=== PATIENT | male | born 1985 | race Caucasian/White ===

== ENCOUNTER 2021-05-26 14:13 | Outpatient (REF) | payer SELFPAY ==
[2021-05-26 16:00] LABS: Binax Internal Control QC Valid; Binax Now Covid-19 Ag Negative (Negative)
== END 2021-05-26 14:14 | disposition home or self-care (01) ==
LOC: HO.LAB 14:13
PROVIDERS: Visit Provider Internal Medicine
DX: Z20.822 Contact with and (suspected) exposure to COVID-19 (principal)
CPT/HCPCS: 36415; C9803

== ENCOUNTER 2023-04-29 20:49 | Emergency (ER) | payer OTHER, SELFPAY ==
[2023-04-29 21:02] VITALS: BP 154/85; PULSE 70; RESP 18; TEMP 36.8; O2SAT 97; BMI 46.0
[2023-04-29 21:46] LABS: MANUAL DIFF FLAG NO
[2023-04-29 21:50] LABS: Basophils Absolute Auto 0.1 X10*3/uL (0.0-0.2); Basophils Percent Auto 0.5 % (0-2); Eosinophils Absolute Auto 0.2 X10*3/uL (0.0-0.4); Eosinophils Percent Auto 1.6 % (0-4); Hematocrit 40.3 % (42.0-52.0); Hemoglobin 14.3 g/dl (14.0-18.0); Imm Gran Abs Auto 0.04 X10*3/uL (0.00-0.03); Imm Gran Pct Auto 0.4 % (0.0-0.4); Lymphocytes Absolute Auto 1.8 X10*3/uL (1.2-4.9); Lymphocytes Percent Auto 18.5 % (20-40); Mean Corpuscular HGB Conc 35.5 g/dl (31.0-36.0); Mean Corpuscular Hemoglobin 30.6 pg (27.0-33.0); Mean Corpuscular Volume 86.1 fL (80.0-98.0); Mean Platelet Volume 9.9 fL (9.4-12.4); Monocytes Absolute Auto 0.8 X10*3/uL (0.1-1.2); Neutrophils Absolute Auto 6.8 x10*3/uL (2.0-8.3); Platelet Count 191 X10*3/uL (160-400); Red Blood Count 4.68 X10*6/uL (4.60-5.80); Red Cell Distribution Width 12.8 % (11.0-16.0); White Blood Count 9.5 X10*3/uL (4.8-10.8)
[2023-04-29 22:56] LABS: Alanine Aminotransferase 55 U/L (0-40); Albumin Level 4.3 g/dL (3.5-5.0); Alkaline Phosphatase 58 U/L (39-117); Anion Gap 16 (12-20); Aspartate Amino Transferase 25 U/L (5-37); Bilirubin Total 0.7 mg/dL (0.0-1.0); Blood Urea Nitrogen 8 mg/dL (9-16); Calcium 9.6 mg/dL (8.4-10.2); Carbon Dioxide 25 mmol/L (22-29); Chloride 102 mmol/L (96-108); Creatinine Clr Calc Pharmacy 229.1; Estimated Glomerular Filt Rate > 60; Glucose Random 133 mg/dL (60-115); Lipase 12 U/L (8-78); Potassium 3.5 mmol/L (3.3-5.1); Sodium 139 mmol/L (135-145); Total Protein 7.5 g/dL (6.5-8.0)
[2023-04-29 23:12] VITALS: BP 133/67; PULSE 56; RESP 16; TEMP 36.7; O2SAT 97
--- NOTE | 2023-04-29 23:17 | ED.ABDPAIN ---
HPI - Abdominal Pain General Chief Complaint: Abdominal Pain Stated Complaint: uppper abd pain,cough Time Seen by Provider: 04/29/23 23:07 Source: patient Mode of arrival: ambulatory History of Present Illness HPI narrative: 37-year-old male with a history of GERD comes in with significant epigastric burning pain since this morning and although the triage note states that he denied eating any fatty foods patient states that he had to 10% beers yesterday with various pizzas. He denies any fever, chills, nausea, vomiting. Related Data Allergies Allergy/AdvReac Type Severity Reaction Status Date / Time Penicillins [PENICILLINS] Allergy Severe HIVES Verified 04/29/23 21:08 penicillin V Allergy Unknown hives Verified 04/29/23 21:08 Review of Systems Review of Systems Pertinent positives and negatives as stated in HPI PMFSH Past Medical History Source: nursing notes reviewed Social History Social History Advance Directives: No Advance Directives Information Provided: No Physical Exam ED Vital Signs: Vital Signs - 24 hr 04/29/23 21:02 04/29/23 23:12 Temperature 98.2 F 98.0 F Pulse Rate 70 56 Respiratory Rate 18 16 Blood Pressure 154/85 H 133/67 Pulse Oximetry 97 97 Oxygen Delivery Method Room Air Room Air BMI result Body Mass Index 46.0 VITAL SIGNS: Reviewed. GENERAL: Well developed, well nourished, in no acute distress. HEAD: Normocephalic/atraumatic EYES: PERRLA, EOMI EARS: Ext canals without abnormality LUNGS: Normal breath sounds. No adventitious sounds or accessory muscle use. SpO2<97> CARDIOVASCULAR: Regular rate and rhythm without noted murmurs ABDOMEN: Soft, non-tender, non-distended with bowel sounds. MUSCULOSKELETAL: No tenderness, deformities, or effusions noted on gross inspection. EXTREMITIES: No cyanosis, clubbing or edema. SKIN: Inspection of the skin reveals no rashes NEUROLOGIC: Alert and oriented x 4. Strength and sensation to light touch were grossly intact x 4. Medical Decision Making Medical Decision Making MDM Narrative: 37-year-old male with history and clinical presentation, DDX: Gastritis/acid reflux, pancreatitis, lower clinical for cholecystitis as patient is afebrile and has not had any associated nausea/vomiting the epigastric discomfort. Reviewed all investigations and hematologic indices are grossly within normal limits as there is no leukocytosis/left shift/anemia or thrombocytopenia. Chemistry indices are grossly within normal limits without CAROLANN there is no electrolyte or liver enzyme derangements than a mildly elevated ALT-55. Lipase is within normal limits. Urinalysis does not demonstrate hematuria or infection. Patient received GI cocktail and Carafate and my interpretation is that he has acute exacerbation of his underlying GERD with acid reflux and gastritis due to food in alcohol consumption yesterday. Differential Diagnosis Differential Diagnoses: The differential diagnosis associated with the presentation includes Please see the discussion above Admission/Observation Consideration of admission/observation: Escalation of care including admission/observation considered Please see the discussion above Lab Data MDM Lab Attestation statement: I reviewed the patient's lab results. Please see the discussion above 04/29/23 21:41 04/29/23 22:37 Labs: Lab Results 04/29/23 04/29/23 04/29/23 Range/Units 21:41 22:37 23:09 WBC 9.5 (4.8-10.8) X10*3/uL RBC 4.68 (4.60-5.80) X10*6/uL Hgb 14.3 (14.0-18.0) g/dl Hct 40.3 L (42.0-52.0) % MCV 86.1 (80.0-98.0) fL MCH 30.6 (27.0-33.0) pg MCHC 35.5 (31.0-36.0) g/dl RDW 12.8 (11.0-16.0) % Plt Count 191 (160-400) X10*3/uL MPV 9.9 (9.4-12.4) fL Immature Gran % (Auto) 0.4 (0.0-0.4) % Neut % (Auto) 71.0 (45-73) % Lymph % (Auto) 18.5 L (20-40) % [place] % (Auto) 8.0 (2-11) % Eos % (Auto) 1.6 (0-4) % Baso % (Auto) 0.5 (0-2) % Lymph # (Auto) 1.8 (1.2-4.9) X10*3/uL [place] # (Auto) 0.8 (0.1-1.2) X10*3/uL Eos # (Auto) 0.2 (0.0-0.4) X10*3/uL Baso # (Auto) 0.1 (0.0-0.2) X10*3/uL Abs Immat Gran (auto) 0.04 H (0.00-0.03) X10*3/uL Absolute Neuts (auto) 6.8 (2.0-8.3) x10*3/uL Absolute Nucleated RBC 0.000 (0.0-0.012) X10*3/uL Nucleated RBC % (auto) 0.0 (0.0-0.2) /100WBC Sodium 139 (135-145) mmol/L Potassium 3.5 (3.3-5.1) mmol/L Chloride 102 (96-108) mmol/L Carbon Dioxide 25 (22-29) mmol/L Anion Gap 16 (12-20) BUN 8 L (9-16) mg/dL Creatinine 0.74 (0.5-1.4) mg/dL Estim Creat Clear Calc 229.1 Estimated GFR > 60 Random Glucose 133 H (60-115) mg/dL Calcium 9.6 (8.4-10.2) mg/dL Total Bilirubin 0.7 (0.0-1.0) mg/dL AST 25 (5-37) U/L ALT 55 H (0-40) U/L Alkaline Phosphatase 58 (39-117) U/L Total Protein 7.5 (6.5-8.0) g/dL Albumin 4.3 (3.5-5.0) g/dL Lipase 12 (8-78) U/L Urine Color Yellow Urine Appearance Clear Urine pH 6.5 (5.0-9.0) Ur Specific [place] 1.015 (1.005-1.025) Urine Protein Negative (Neg-Trace) mg/dL Urine Glucose (UA) Negative (Negative) mg/dL Urine Ketones Negative (Negative) mg/dL Urine Blood Negative (Negative) Urine Nitrite Negative (Negative) Ur Leukocyte Esterase Negative (Negative) Discharge Plan Discharge Clinical Impression: Gastritis, Acid reflux Patient Disposition: Home, Self-Care Instructions: Diet for Stomach Ulcers and Gastritis (ED), Indigestion (ED), Gastroesophageal Reflux Disease (ED), Gastritis (ED) Additional Instructions: 1. Resume all home medications as prescribed. 2. For the next 48 hours I highly recommend purchasing [id number] Mylanta and taking it as directed prior to your 3 meals of the day, try to reduce the amount carbonated/calf in consumption. Return to the ER for any worsening symptoms.
[2023-04-29 23:23] LABS: Appearance Urine Clear; Color Urine Yellow; Glucose Urine UA Negative (Negative); Leukocyte Esterase Urine Negative (Negative); Nitrite Urine Negative (Negative); PH 6.5 (5.0-9.0); Specific Gravity - Urine 1.015 (1.005-1.025); Urine Blood Negative (Negative); Urine Ketones Negative (Negative); Urine Protein Negative (Neg-Trace)
[2023-04-29] MEDS: Magnesium Hydrox/Alum Hydrox 30 ML ORAL.SUSP PO (23:48)
[2023-04-29] MEDS: Sucralfate Oral Suspension 1 GM/10 ML ORAL.SUSP PO (23:48)
== END 2023-04-29 23:59 | disposition home or self-care (01) ==
PROVIDERS: Emergency Provider Student in an Organized Health Care Education/Training Program
DX: K29.70 Gastritis, unspecified, without bleeding (principal); K21.9 Gastro-esophageal reflux disease without esophagitis; R10.13 Epigastric pain; F12.90 Cannabis use, unspecified, uncomplicated
CPT/HCPCS: 36415; 80053; 81003; 83690; 85025; 99283; 99284

== ENCOUNTER 2023-06-08 10:12 | Emergency (ER) | payer OTHER, SELFPAY ==
--- NOTE | ~2023-06-08 | XR_ITS ---
EXAMINATION: XR CHEST CLINICAL INFORMATION: Chest pain. COMPARISON: None available. TECHNIQUE: Frontal view of the chest was obtained. FINDINGS: The lungs are well expanded. No focal consolidation. No pleural effusion. Cardiac silhouette is within normal limits. XR/XR chest 1V IMPRESSION: No acute abnormality.
[2023-06-08 10:29] VITALS: BP 137/67; PULSE 64; RESP 16; TEMP 37; O2SAT 97; BMI 45.0
--- NOTE | 2023-06-08 10:37 | ECG_ITS ---
Test Reason : CHEST PAIN Blood Pressure : / mmHG Vent. Rate : 068 BPM Atrial Rate : 068 BPM P-R Int : 174 ms QRS Dur : 100 ms QT Int : 388 ms P-R-T Axes : 000 009 029 degrees QTc Int : 412 ms Normal sinus rhythm Normal ECG No previous ECGs available Referred By: Kristina Acuna Electronically Signed By:SANJIV ORDONEZ
[2023-06-08 11:13] LABS: MANUAL DIFF FLAG NO
[2023-06-08 11:17] LABS: Basophils Absolute Auto 0.1 X10*3/uL (0.0-0.2); Basophils Percent Auto 0.6 % (0-2); Eosinophils Absolute Auto 0.3 X10*3/uL (0.0-0.4); Eosinophils Percent Auto 3.7 % (0-4); Hematocrit 41.8 % (42.0-52.0); Hemoglobin 14.5 g/dl (14.0-18.0); Imm Gran Abs Auto 0.03 X10*3/uL (0.00-0.03); Imm Gran Pct Auto 0.3 % (0.0-0.4); Lymphocytes Absolute Auto 1.4 X10*3/uL (1.2-4.9); Lymphocytes Percent Auto 15.9 % (20-40); Mean Corpuscular HGB Conc 34.7 g/dl (31.0-36.0); Mean Corpuscular Hemoglobin 30.4 pg (27.0-33.0); Mean Corpuscular Volume 87.6 fL (80.0-98.0); Mean Platelet Volume 10.4 fL (9.4-12.4); Monocytes Absolute Auto 0.7 X10*3/uL (0.1-1.2); Monocytes Percent Auto 8.5 % (2-11); Neutrophils Absolute Auto 6.1 x10*3/uL (2.0-8.3); Platelet Count 175 X10*3/uL (160-400); Red Blood Count 4.77 X10*6/uL (4.60-5.80); Red Cell Distribution Width 12.4 % (11.0-16.0); White Blood Count 8.6 X10*3/uL (4.8-10.8)
[2023-06-08 11:29] LABS: Anion Gap 13 (12-20); Blood Urea Nitrogen 8 mg/dL (9-16); Calcium 9.6 mg/dL (8.4-10.2); Carbon Dioxide 25 mmol/L (22-29); Chloride 106 mmol/L (96-108); Creatinine Clr Calc Pharmacy 192.6; Estimated Glomerular Filt Rate > 60; Glucose Random 113 mg/dL (60-115); Potassium 4.1 mmol/L (3.3-5.1); Sodium 140 mmol/L (135-145)
[2023-06-08 17:53] VITALS: BP 118/88; PULSE 70; RESP 18; TEMP 36.8; O2SAT 99
--- NOTE | 2023-06-08 18:23 | ED.CHESTPAIN ---
HPI - Chest Pain General Chief Complaint: Chest Pain Stated Complaint: CHEST PRESSURE PANIC ATTACK Time Seen by Provider: 06/08/23 17:57 Source: patient Mode of arrival: ambulatory Limitations: no limitations History of Present Illness HPI narrative: 37yoM presenting to the ER with complaints of nausea with associated chest discomfort. He reports that this morning he woke up very anxious with nausea and chest pressure. He reports he was unsure if it is related to his anxiety/nerves versus cardiac related. He reports that EMS gave him Zofran on arrival and that resolved his nausea. He had a normal EKG by EMS. He was in the waiting room and had labs done. He came back to triage reporting that he would like his labs and would like to be discharged. Although I explained to him that when he was seen in triage was no front end provider therefore troponin was not ordered. Therefore added a troponin at this time. He reports that his symptoms have completely resolved and he does not want to be here any longer. He did admit that he had a rash to his lower extremities due to history of eczema/psoriasis. He reports that he normally uses topical cream and is not providing any symptomatic relief and he would like medication for this. Otherwise he denies any dizziness, change in vision, headaches, neck pain/stiffness, jaw pain, vomiting, dyspnea on exertion orthopnea, palpitations paresthesias, cough or congestion, abdominal pain, back pain, flank pain, lower extremity edema or calf tenderness, recent travel or sick contacts, history of DVT or PE, any estrogen usage, recent surgery immobilization, or any other symptoms complaints or concerns at this time. MD complaint: chest pain Onset (ago): hour(s) Timing of current episode: now resolved Prior episodes: Yes Onset: during rest Pain location: substernal Pain radiation: none Severity: mild Quality: tightness Relieving factors: nothing Exacerbating factors: nothing Associated symptoms: nausea Treatment prior to arrival: other (zofran) Risk Factors Coronary artery disease risk factors: none Related Data Previous Rx's Medication Instructions Recorded hydrocortisone 2.5 % topical 1 appl topical QD-TID PRN skin 06/08/23 ointment irritation #454 grams hydroxyzine HCl 50 mg tablet 50 mg PO Q8H PRN anxiety #10 tabs 06/08/23 ondansetron 4 mg disintegrating 4 mg PO Q8H nausea and vomiting 01/19/24 tablet #10 tabs prednisone 20 mg tablet 40 mg (2 x 20 mg) PO DAILY 06/08/23 inflammation 5 days #10 tabs Allergies Allergy/AdvReac Type Severity Reaction Status Date / Time Penicillins [PENICILLINS] Allergy Severe HIVES Verified 04/29/23 21:08 penicillin V Allergy Unknown hives Verified 04/29/23 21:08 Review of Systems Review of Systems: Constitutional : No Weight loss, No Fever, No Chills, No Night Sweats, No Fatigue, No Malaise ENT/Mouth : No Hearing loss, No Ear Pain, No Nasal Congestion, No Sinus Pain, No Hoarseness, No sore throat, No Rhinorrhea, No Swallowing Difficulty Eyes: No Eye Pain, No Swelling, No Redness, No Foreign Body, No Discharge, No Vision Changes Cardiovascular : + resolved Chest Pain, No SOB, No Dyspnea on Exertion, No Orthopnea, No Edema, No Palpitations Respiratory : No Cough, No Sputum, No Wheezing, No Smoke Exposure, No Dyspnea Gastrointestinal : + resolved Nausea, No Vomiting, No Diarrhea, No Constipation, No abdominal Pain, No Hematochezia, No Melena Genitourinary : no irregular bleeding, No Dysuria, No Urinary Frequency, No Hematuria, No Urinary Incontinence, No Urgency, No Flank Pain, No Urinary Flow Changes, No Hesitancy Musculoskeletal : No joint pain, No Myalgias, No Joint Swelling Skin : No Skin Lesions, + to lower legs rash Neuro : No Weakness, No Numbness, No Paresthesias, No Loss of Consciousness, No Dizziness, No Headache Psych : No Anxiety/Panic, No Depression, No SI/HI/AH/VH, No Social Issues, Heme/Lymph: No Bruising, No Bleeding,No Lymphadenopathy Endocrine : No Polyuria, No Polydipsia, No Temperature Intolerance Yes all other systems are reviewed and are negative PMFSH Past Medical History Attestation statement: The following information was validated with the patient. Source: old records reviewed and nursing notes reviewed Onset Date is defined in the Problem List Problems that require an onset date and time if occurred within 24 hrs of arrival to the ED Aortic Dissection and Rupture; Neurologic impairment; Cardiopulmonary Arrest; Endotracheal Intubation; Insertion or Replacement of Mechanical Circulatory Assist Device Social History Social History Substance Use Type: Marijuana Advance Directives: No Advance Directives Information Provided: No Physical Exam Vital Signs: Vital Signs: Last Vital Signs Temp 98.2 F 06/08/23 17:53 Pulse 70 06/08/23 17:53 Resp 18 06/08/23 17:53 BP 118/88 06/08/23 17:53 Pulse Ox 99 06/08/23 17:53 O2 Del Method Room Air 06/08/23 17:53 BMI result Body Mass Index 45.0 Vital signs reviewed. Blood pressure normal. Pulse normal. Respiration normal. Oxygen normal. Temperature normal. Appearance: Alert. Oriented X3. No acute distress. Head: Normal external exam. Normocephalic. Atraumatic. Eyes: PERRLA. EOMI. Conjunctiva and sclera normal. Eyelids normal. ENT: EAC normal. TM's Normal. Pharynx normal. Uvula midline. Moist mucous membranes. No lesions/ulcerations or masses noted on the tongue. Normal voice. No trismus noted. No drooling noted. No muffled voice noted. Neck: Normal inspection. Neck supple. FROM. No adenopathy. Thyroid Normal. No meningeal signs. CVS: Normal heart rate and rhythm. Heart sound normal. Pulses normal throughout. No murmurs/rales/gallops. Respiratory: No respiratory distress. Painless inspiration. Breath sounds normal. No wheezes/rales/rhonchi noted. Chest nontender. No accessory muscle usage noted or decreased air movement noted. Abdomen: Soft and nontender. Back: Full range of motion noted. Nontender. Skin: Skin warm and dry. Normal skin color. Normal skin turgor. No lacerations noted. Patient noted to have dry silvery plaques and scales on the calf/lower extremities. No signs of infection, drainage. Extremities: Extremities exhibit normal range of motion and nontender. Neuro: Oriented X 3. No motor deficit. No sensory deficit. Reflexes normal. Normal steady gait. No focal neuro deficits noted. CN's II-XII intact bilaterally? Vascular: + radial pulses. Normal cap refill. No cyanosis noted to upper extremity nails Course Course Course Narrative: This patient presents with chest pain, with symptoms suggestive of noncardiac chest pain. History without high risk features (e.g., not substernal, no exertional component, not relieved with rest). Minimal CAD risk factors (including age). Exam without evidence of volume overload. EKG without signs of active ischemia. HEART score: 1. Given the timing of pain to ER presentation, plan to send single troponin to evaluate for NSTEMI. Presentation not consistent with acute PE (Wells low risk /PERC negative), pneumothorax, thoracic arotic dissection, cardiac effusion or tamponade. Labs obtained and all labs within normal limits. EKG within normal limits no acute processes noted. Chest x-ray within normal limits. Patient requesting to be discharged due to he does not have any symptoms at this time. Due to patient being asymptomatic and having a negative workup patient will be discharged with symptomatic treatment with outpatient follow-up with instructions return if any new or worsening symptoms. Patient understands agrees with this plan. Medical Decision Making Medical Decision Making MDM Narrative: see course Differential Diagnosis Differential Diagnoses: The differential diagnosis associated with the presentation includes see course Lab Data [facility] Lab Attestation statement: I reviewed the patient's lab results. 06/08/23 11:05 06/08/23 11:05 Labs: Lab Results 06/08/23 Range/Units 11:05 WBC 8.6 (4.8-10.8) X10*3/uL RBC 4.77 (4.60-5.80) X10*6/uL Hgb 14.5 (14.0-18.0) g/dl Hct 41.8 L (42.0-52.0) % MCV 87.6 (80.0-98.0) fL MCH 30.4 (27.0-33.0) pg MCHC 34.7 (31.0-36.0) g/dl RDW 12.4 (11.0-16.0) % Plt Count 175 (160-400) X10*3/uL MPV 10.4 (9.4-12.4) fL Immature Gran % (Auto) 0.3 (0.0-0.4) % Neut % (Auto) 71.0 (45-73) % Lymph % (Auto) 15.9 L (20-40) % [place] % (Auto) 8.5 (2-11) % Eos % (Auto) 3.7 (0-4) % Baso % (Auto) 0.6 (0-2) % Lymph # (Auto) 1.4 (1.2-4.9) X10*3/uL Bryan # (Auto) 0.7 (0.1-1.2) X10*3/uL Eos # (Auto) 0.3 (0.0-0.4) X10*3/uL Baso # (Auto) 0.1 (0.0-0.2) X10*3/uL Abs Immat Gran (auto) 0.03 (0.00-0.03) X10*3/uL Absolute Neuts (auto) 6.1 (2.0-8.3) x10*3/uL Absolute Nucleated RBC 0.000 (0.0-0.012) X10*3/uL Nucleated RBC % (auto) 0.0 (0.0-0.2) /100WBC Sodium 140 (135-145) mmol/L Potassium 4.1 (3.3-5.1) mmol/L Chloride 106 (96-108) mmol/L Carbon Dioxide 25 (22-29) mmol/L Anion Gap 13 (12-20) BUN 8 L (9-16) mg/dL Creatinine 0.87 (0.5-1.4) mg/dL Estim Creat Clear Calc 192.6 Estimated GFR > 60 Random Glucose 113 (60-115) mg/dL Calcium 9.6 (8.4-10.2) mg/dL Troponin I High Sens < 2.7 (<3.5-35.0) ng/L Independent Interpretation I performed an independent interpretation of an: EKG (Normal sinus rhythm no acute ischemic change are noted) and Plain X-Ray (Within normal limits no acute processes agreeable radiologist report) Radiology Impression Discussion of test interpretation with radiology: I have reviewed the radiologist's reading. Independent Historian Clinical information obtained from an independent historian. History obtained from or confirmed by: EMS and Other (Patient, medical records and nurse's note) External Record Review External record reviewed: Inpatient record, Office record, Outpatient record, Prior outpatient labs, Prior outpatient radiology, Primary care record and Outside ED record Prescription Management I considered prescription management with: Pain Medication and Other (Anxiety medication and psoriasis medications) Social Determinants Patient?s care significantly limited by Social Determinants of Health including: Low income and Other Social Determinant of Health Discharge Plan Discharge Clinical Impression: Atypical chest pain, Psoriasis Patient Disposition: Home, Self-Care Instructions: Psoriasis (ED), Noncardiac Chest Pain (ED) Prescriptions: New hydroxyzine HCl 50 mg tablet 50 mg PO Q8H PRN (Reason: anxiety) Qty: 10 0RF ondansetron 4 mg tablet,disintegrating 4 mg PO Q8H Qty: 10 0RF hydrocortisone 2.5 % ointment 1 appl topical QD-TID PRN (Reason: skin irritation) Qty: 454 0RF prednisone 20 mg tablet 40 mg PO DAILY 5 Days Qty: 10 0RF Referrals: Nnio Torres MD [Physician] - 2 days Interventions: ED Discharge Assessment Last Done: 06/08/23 18:36 Discharge Date/Time: 06/08/23 18:36
[2023-06-08 18:27] LABS: Troponin-I High Sensitivity < 2.7 ng/L (<3.5-35.0)
== END 2023-06-08 18:36 | disposition home or self-care (01) ==
LOC: HO.ED 18:35
PROVIDERS: Emergency Medicine; Physician Assistant Medical; Emergency Provider Emergency Medicine Emergency Medical Services
DX: R07.89 Other chest pain (principal); L40.9 Psoriasis, unspecified
CPT/HCPCS: 36415; 71045; 80048; 84484; 85025; 93005; 99283

== ENCOUNTER → 2023-06-08 10:37 | Outpatient (BNV) | payer OTHER, SELFPAY | PROVIDERS: Visit Provider Internal Medicine | DX: R07.9 Chest pain, unspecified (principal) | CPT/HCPCS: 93010 ==

== ENCOUNTER 2023-07-05 20:05 | Emergency (ER) | payer OTHER, SELFPAY ==
--- NOTE | ~2023-07-05 | XR_ITS ---
EXAMINATION: XR CHEST CLINICAL INFORMATION: Chest pain COMPARISON: None available. TECHNIQUE: 2 views of the chest were obtained. FINDINGS: No significant abnormality is noted involving the heart, lungs, mediastinum, bony thorax or soft tissues. XR/XR chest 2V IMPRESSION: Unremarkable examination.
[2023-07-05 20:33] VITALS: BP 175/88; PULSE 82; RESP 18; TEMP 36.9; O2SAT 97; BMI 43.7
--- NOTE | 2023-07-05 20:35 | ECG_ITS ---
Test Reason : chest discomfort Blood Pressure : / mmHG Vent. Rate : 083 BPM Atrial Rate : 083 BPM P-R Int : 152 ms QRS Dur : 092 ms QT Int : 378 ms P-R-T Axes : 014 002 032 degrees QTc Int : 444 ms Normal sinus rhythm Minimal voltage criteria for LVH, may be normal variant ( R in aVL ) Borderline ECG When compared with ECG of 08-JUN-2023 10:59, No significant change was found Referred By: Rosalee Mccormick Electronically Signed By:Robert Espinoza
--- NOTE | 2023-07-05 20:35 | ED.GENADULT ---
HPI - General Adult General Chief complaint: Chest Pain Stated complaint: pressure by neck, shoulder pain, sob Related Data Previous Rx's Medication Instructions Recorded hydrocortisone 2.5 % topical 1 appl topical QD-TID PRN skin 06/08/23 ointment irritation #454 grams hydroxyzine HCl 50 mg tablet 50 mg PO Q8H PRN anxiety #10 tabs 06/08/23 ondansetron 4 mg disintegrating 4 mg PO Q8H nausea and vomiting 06/08/23 tablet #10 tabs prednisone 20 mg tablet 40 mg (2 x 20 mg) PO DAILY 06/08/23 inflammation 5 days #10 tabs Allergies Allergy/AdvReac Type Severity Reaction Status Date / Time Penicillins [PENICILLINS] Allergy Severe HIVES Verified 04/29/23 21:08 penicillin V Allergy Unknown hives Verified 04/29/23 21:08 [facility] Social History Social History Substance Use Type: Marijuana Advance Directives: No Advance Directives Information Provided: No Physical Exam ED Vital Signs: Vital Signs - 24 hr 07/05/23 20:33 Temperature 98.4 F Pulse Rate 82 Respiratory Rate 18 Blood Pressure 175/88 H Pulse Oximetry 97 Oxygen Delivery Method Room Air BMI result Body Mass Index 43.7 Course Course Course Narrative: This is a rapid medical exam: Additional HPI, ROS, PE not included below will be deferred to primary provider. Patient is a 38-year-old male presenting to the ED with complaint of left sided chest pain/pressure radiating to left shoulder/arm for the past 24 hours. Associated shortness of breath and indigestion. Plan: EKG, CXR, labs Medical Decision Making Lab Data 07/05/23 20:52 07/05/23 20:52 Labs: Lab Results 07/05/23 Range/Units 20:52 WBC 9.7 (4.8-10.8) X10*3/uL RBC 4.87 (4.60-5.80) X10*6/uL Hgb 15.0 (14.0-18.0) g/dl Hct 42.4 (42.0-52.0) % MCV 87.1 (80.0-98.0) fL MCH 30.8 (27.0-33.0) pg MCHC 35.4 (31.0-36.0) g/dl RDW 12.6 (11.0-16.0) % Plt Count 195 (160-400) X10*3/uL MPV 10.2 (9.4-12.4) fL Immature Gran % (Auto) 0.3 (0.0-0.4) % Neut % (Auto) 69.3 (45-73) % Lymph % (Auto) 18.8 L (20-40) % [place] % (Auto) 7.3 (2-11) % Eos % (Auto) 3.7 (0-4) % Baso % (Auto) 0.6 (0-2) % Lymph # (Auto) 1.8 (1.2-4.9) X10*3/uL [place] # (Auto) 0.7 (0.1-1.2) X10*3/uL Eos # (Auto) 0.4 (0.0-0.4) X10*3/uL Baso # (Auto) 0.1 (0.0-0.2) X10*3/uL Abs Immat Gran (auto) 0.03 (0.00-0.03) X10*3/uL Absolute Neuts (auto) 6.7 (2.0-8.3) x10*3/uL Absolute Nucleated RBC 0.000 (0.0-0.012) X10*3/uL Nucleated RBC % (auto) 0.0 (0.0-0.2) /100WBC PT 11.5 (11.1-13.3) SEC INR 0.9 (0.9-1.1) Sodium 137 (135-145) mmol/L Potassium 3.6 (3.3-5.1) mmol/L Chloride 106 (96-108) mmol/L Carbon Dioxide 21 L (22-29) mmol/L Anion Gap 14 (12-20) BUN 7 L (9-16) mg/dL Creatinine 0.80 (0.5-1.4) mg/dL Estim Creat Clear Calc 204.2 Estimated GFR > 60 Random Glucose 107 (60-115) mg/dL Calcium 9.5 (8.4-10.2) mg/dL Total Bilirubin 0.5 (0.0-1.0) mg/dL AST 48 H (5-37) U/L ALT 89 H (0-40) U/L Alkaline Phosphatase 71 (39-117) U/L Troponin I High Sens < 2.7 (<3.5-35.0) ng/L Total Protein 7.5 (6.5-8.0) g/dL Albumin 4.2 (3.5-5.0) g/dL COVID-19 (CHRISTELLE) Negative (Negative) COVID-19 Clin Com See Note Influenza Type A (WILLIE) Negative (Negative) Influenza Type B (WILLIE) Negative (Negative) Influenza A & B Note See Note Discharge Plan Discharge Clinical Impression: Chest pain Patient Disposition: Left W/O Completing Treatment Prescriptions: No Action hydroxyzine HCl 50 mg tablet 50 mg PO Q8H PRN (Reason: anxiety) Qty: 10 0RF ondansetron 4 mg tablet,disintegrating 4 mg PO Q8H Qty: 10 0RF hydrocortisone 2.5 % ointment 1 appl topical QD-TID PRN (Reason: skin irritation) Qty: 454 0RF prednisone 20 mg tablet 40 mg PO DAILY 5 Days Qty: 10 0RF Discharge Date/Time: 07/06/23 00:42
--- NOTE | 2023-07-05 20:55 | MHC.EDTECH ---
Patient ekg taken and was read by Provider ,blood drawn a,flu/covid swab collected and sent to lab .
[2023-07-05 20:57] LABS: MANUAL DIFF FLAG NO
[2023-07-05 20:59] LABS: Basophils Absolute Auto 0.1 X10*3/uL (0.0-0.2); Basophils Percent Auto 0.6 % (0-2); Eosinophils Absolute Auto 0.4 X10*3/uL (0.0-0.4); Eosinophils Percent Auto 3.7 % (0-4); Hematocrit 42.4 % (42.0-52.0); Imm Gran Abs Auto 0.03 X10*3/uL (0.00-0.03); Imm Gran Pct Auto 0.3 % (0.0-0.4); Lymphocytes Absolute Auto 1.8 X10*3/uL (1.2-4.9); Lymphocytes Percent Auto 18.8 % (20-40); Mean Corpuscular HGB Conc 35.4 g/dl (31.0-36.0); Mean Corpuscular Hemoglobin 30.8 pg (27.0-33.0); Mean Corpuscular Volume 87.1 fL (80.0-98.0); Mean Platelet Volume 10.2 fL (9.4-12.4); Monocytes Absolute Auto 0.7 X10*3/uL (0.1-1.2); Monocytes Percent Auto 7.3 % (2-11); Neutrophils Absolute Auto 6.7 x10*3/uL (2.0-8.3); Neutrophils Percent Auto 69.3 % (45-73); Platelet Count 195 X10*3/uL (160-400); Red Blood Count 4.87 X10*6/uL (4.60-5.80); Red Cell Distribution Width 12.6 % (11.0-16.0); White Blood Count 9.7 X10*3/uL (4.8-10.8)
[2023-07-05 21:04] LABS: INTERNATIONAL NORM RATIO 0.9 (0.9-1.1); Prothrombin Time 11.5 SEC (11.1-13.3)
[2023-07-05 21:11] LABS: Alanine Aminotransferase 89 U/L (0-40); Albumin Level 4.2 g/dL (3.5-5.0); Alkaline Phosphatase 71 U/L (39-117); Anion Gap 14 (12-20); Aspartate Amino Transferase 48 U/L (5-37); Bilirubin Total 0.5 mg/dL (0.0-1.0); Blood Urea Nitrogen 7 mg/dL (9-16); COVID-19 Test Negative (Negative); Calcium 9.5 mg/dL (8.4-10.2); Carbon Dioxide 21 mmol/L (22-29); Chloride 106 mmol/L (96-108); Creatinine Clr Calc Pharmacy 204.2; Estimated Glomerular Filt Rate > 60; Glucose Random 107 mg/dL (60-115); IDNOW Serial# 152EDE1D; Potassium 3.6 mmol/L (3.3-5.1); Sodium 137 mmol/L (135-145); Total Protein 7.5 g/dL (6.5-8.0)
[2023-07-05 21:12] LABS: IDNOW Serial# 08D9AD1C; Influenza A Negative (Negative); Influenza B2 Negative (Negative)
[2023-07-05 21:19] LABS: Troponin-I High Sensitivity < 2.7 ng/L (<3.5-35.0)
== END 2023-07-06 00:42 | disposition left against medical advice (07) ==
PROVIDERS: Registered Nurse Emergency; Emergency Provider Emergency Medicine; PCP Internal Medicine
DX: R07.9 Chest pain, unspecified (principal); M25.512 Pain in left shoulder; R06.02 Shortness of breath; Z11.52 Encounter for screening for COVID-19
CPT/HCPCS: 71046; 80053; 84484; 85025; 85610; 87502; 87635; 93005; 99283

== ENCOUNTER → 2023-07-05 20:35 | Outpatient (BNV) | payer OTHER, SELFPAY | PROVIDERS: Emergency Provider Emergency Medicine; PCP Internal Medicine; Visit Provider Internal Medicine Cardiovascular Disease | DX: R07.89 Other chest pain (principal) | CPT/HCPCS: 93010 ==

== ENCOUNTER 2023-11-30 18:11 | Emergency (ER) | payer OTHER, SELFPAY ==
--- NOTE | ~2023-11-30 | XR_ITS ---
EXAMINATION: XR HAND/WRIST, LEFT CLINICAL INFORMATION: Pain. COMPARISON: None TECHNIQUE: 4 radiographs of the left hand and wrist. FINDINGS: There is no fracture or dislocation. The soft tissue overlying the fifth metacarpal bone is moderately swollen. There is no radiopaque foreign object identified within the soft tissue. XR/XR hand wrist LT IMPRESSION: No fracture or dislocation. Soft tissue swelling.
[2023-11-30 18:18] VITALS: BP 147/81; PULSE 81; RESP 20; TEMP 36.8; O2SAT 96; BMI 45.6
--- NOTE | 2023-11-30 19:57 | ED_ITS ---
HPI - Extremity Problem General Chief complaint: Extremity Injury, Upper Stated complaint: L hand swollen, no injury Time Seen by Provider: 11/30/23 19:40 History of Present Illness HPI Narrative: Patient is a 38-year-old male presents today with having swelling to the metacarpophalangeal area of the left 4th and 5th digit. There is no trauma. There has no fever no chills. Patient does move heavy objects. Denies any systemic complaints. No pain to the wrist. No change in movement of the fingers. Able to make a fist. Denies any chest pain shortness of breath. Related Data Previous Rx's ?Medication ?Instructions ?Recorded hydrocortisone 2.5 % topical 1 appl topical QD-TID PRN skin 06/08/23 ointment irritation #454 grams hydroxyzine HCl 50 mg tablet 50 mg PO Q8H PRN anxiety #10 tabs 06/08/23 ondansetron 4 mg disintegrating 4 mg PO Q8H nausea and vomiting 06/08/23 tablet #10 tabs prednisone 20 mg tablet 40 mg (2 x 20 mg) PO DAILY 06/08/23 inflammation 5 days #10 tabs Allergies Allergy/AdvReac Type Severity Reaction Status Date / Time Penicillins [PENICILLINS] Allergy Severe HIVES Verified 11/30/23 18:21 penicillin V Allergy Unknown hives Verified 11/30/23 18:21 Review of Systems Review of Systems: Positive pain to the left hand Yes all other systems are reviewed and are negative [facility] Past Medical History Attestation statement: The following information was validated with the patient. Social History Social History Substance Use Type: Marijuana Advance Directives: No Advance Directives Information Provided: No Do you have a plan to hurt others: No Plan Physical Exam Vital Signs: Vital Signs: Last Vital Signs Temp 98.3 F 11/30/23 18:18 Pulse 81 11/30/23 18:18 Resp 20 11/30/23 18:18 BP 147/81 H 11/30/23 18:18 Pulse Ox 96 11/30/23 18:18 O2 Del Method Room Air 11/30/23 18:18 BMI result Body Mass Index 45.6 Appearance: Alert. Oriented X3. No acute distress. Eyes: Pupils equal, round and reactive to light. ENT: Pharynx normal. Neck: Normal inspection. Neck supple. No lymph nodes noted. No crepitus CVS: Normal heart rate and rhythm. Pulses normal. Normal S1 and S2 Respiratory: No respiratory distress. Breath sounds normal. No Wheezing. No rales Abdomen: Soft and nontender. No rigidity. No distention. good BS x4 Skin: Skin warm and dry. Normal skin color. Normal skin turgor. Extremities: No lower extremity edema. Neurovascular intact to all extremities. No Lacerations. No Rash. Range of motion over the left hand grossly intact. Flexion extension at the ring and pinky are grossly intact. Mild swelling noted in the MCP joint of the 4th and 5th digit. Capillary refill less than 2 seconds sensation intact there is no gross redness noted. No signs of infection. There is good range of motion of the wrist. There is no anatomical snuffbox tenderness elicited on palpation. Good range of motion at the shoulder. Good range of motion at the elbow. Neuro: Oriented X 3. No motor deficit. No sensory deficit. Moving all extermities. No slurred speech Medical Decision Making Medical Decision Making [facility] Narrative: X-ray of the hand by my interpretation showed no acute evidence of fracture. Explained to patient the need for follow-up. There has no signs of infection. There is signs of some mild swelling in the area. Question significance. Will have patient continue to use NSAIDs. Ice elevate. Follow-up with orthopedics on an outpatient basis Differential Diagnosis Differential Diagnoses: The differential diagnosis associated with the presentation includes Fracture, contusion, sprain Admission/Observation Consideration of admission/observation: Escalation of care including admission/observation considered Lab Data [facility] Lab Attestation statement: I reviewed the patient's lab results. Radiology Impression Discussion of test interpretation with radiology: I have reviewed the radiologist's reading. Discharge Plan Discharge Clinical Impression: Hand swelling Patient Disposition: Home, Self-Care Instructions: Arthralgia (ED) Prescriptions: No Action hydroxyzine HCl 50 mg tablet 50 mg PO Q8H PRN (Reason: anxiety) Qty: 10 0RF ondansetron 4 mg tablet,disintegrating 4 mg PO Q8H Qty: 10 0RF hydrocortisone 2.5 % ointment 1 appl topical QD-TID PRN (Reason: skin irritation) Qty: 454 0RF prednisone 20 mg tablet 40 mg PO DAILY 5 Days Qty: 10 0RF Referrals: Cindy Newberry MD [Physician] - 12/03/23 Print Language: Hungarian
[2023-11-30 20:31] VITALS: BP 147/81; PULSE 81; RESP 20; TEMP 36.8; O2SAT 96
== END 2023-11-30 20:31 | disposition home or self-care (01) ==
PROVIDERS: Emergency Provider Emergency Medicine Emergency Medical Services; PCP Internal Medicine
DX: M79.89 Other specified soft tissue disorders (principal); M79.642 Pain in left hand
CPT/HCPCS: 73110; 73130; 99282; 99283

== ENCOUNTER 2024-07-15 08:08 | Emergency (ER) | payer SELFPAY ==
--- NOTE | ~2024-07-15 | XR_ITS ---
EXAMINATION: XR CHEST CLINICAL INFORMATION: chest pain COMPARISON: July 05, 2023. TECHNIQUE: Frontal view of the chest was obtained. FINDINGS: No consolidation, pleural effusion or pneumothorax. No hyperinflation. Cardiomediastinal silhouette size is normal. Poor evaluation of the axial skeleton due to patient's body habitus. XR/XR chest 1V IMPRESSION: No acute airspace disease. Electronically signed by: Mac Carmona MD 07/15/2024 09:18 AM ZOILA
--- NOTE | 2024-07-15 08:09 | ECG_ITS ---
Test Reason : chest pain Blood Pressure : */* mmHG Vent. Rate : 67 BPM Atrial Rate : 67 BPM P-R Int : 166 ms QRS Dur : 98 ms QT Int : 378 ms P-R-T Axes : 13 5 24 degrees QTcB Int : 399 ms Normal sinus rhythm Normal ECG When compared with ECG of 05-Jul-2023 20:41, No significant change was found Referred By: Generic ED Physician Electronically Signed By: SANJIV ORDONEZ
[2024-07-15 08:35] VITALS: BP 135/89; PULSE 68; RESP 18; TEMP 36.6; O2SAT 97; BMI 48.0
[2024-07-15 09:00] LABS: MANUAL DIFF FLAG NO
[2024-07-15 09:02] LABS: Basophils Absolute Auto 0.1 X10*3/uL (0.0-0.2); Basophils Percent Auto 0.7 % (0-2); Eosinophils Absolute Auto 0.2 X10*3/uL (0.0-0.4); Hematocrit 44.2 % (42.0-52.0); Hemoglobin 15.6 g/dl (14.0-18.0); Imm Gran Abs Auto 0.04 X10*3/uL (0.00-0.03); Imm Gran Pct Auto 0.5 % (0.0-0.4); Lymphocytes Absolute Auto 1.6 X10*3/uL (1.2-4.9); Lymphocytes Percent Auto 20.3 % (20-40); Mean Corpuscular HGB Conc 35.3 g/dl (31.0-36.0); Mean Corpuscular Hemoglobin 30.8 pg (27.0-33.0); Mean Corpuscular Volume 87.2 fL (80.0-98.0); Monocytes Absolute Auto 0.6 X10*3/uL (0.1-1.2); Monocytes Percent Auto 7.7 % (2-11); Neutrophils Absolute Auto 5.4 x10*3/uL (2.0-8.3); Neutrophils Percent Auto 67.8 % (45-73); Platelet Count 190 X10*3/uL (160-400); Red Blood Count 5.07 X10*6/uL (4.60-5.80); Red Cell Distribution Width 12.9 % (11.0-16.0)
[2024-07-15 09:08] LABS: Prothrombin Time 11.9 SEC (10.9-12.4)
[2024-07-15] MEDS: Famotidine 20 MG TABLET PO (09:15)
[2024-07-15] MEDS: Magnesium Hydrox/Alum Hydrox 30 ML ORAL.SUSP PO (09:15)
[2024-07-15] MEDS: Ondansetron ODT 4 MG TAB.RAPDIS TRANSLINGU (09:15)
[2024-07-15 09:17] VITALS: BP 129/69; PULSE 69; RESP 18; TEMP 36.7; O2SAT 98
[2024-07-15 09:25] LABS: Alanine Aminotransferase 95 U/L (0-40); Albumin Level 4.6 g/dL (3.5-5.0); Alkaline Phosphatase 75 U/L (39-117); Anion Gap 12 (12-20); Aspartate Amino Transferase 47 U/L (5-37); Bilirubin Total 0.7 mg/dL (0.0-1.0); Blood Urea Nitrogen 8 mg/dL (9-16); Calcium 11.1 mg/dL (8.4-10.2); Carbon Dioxide 23 mmol/L (22-29); Chloride 106 mmol/L (96-108); Creatinine Clr Calc Pharmacy 218.6; Estimated Glomerular Filt Rate > 60; Glucose Random 106 mg/dL (60-115); Lipase 17 U/L (8-78); Magnesium 2.1 mg/dL (1.6-2.6); Potassium 4.4 mmol/L (3.3-5.1); Sodium 137 mmol/L (135-145); Total Protein 8.4 g/dL (6.5-8.0)
--- NOTE | 2024-07-15 09:25 | ED_ITS ---
HPI - Chest Pain General Chief Complaint: Chest Pain Stated Complaint: CP Time Seen by Provider: 07/15/24 08:50 Source: patient, RN notes reviewed and old records reviewed Mode of arrival: ambulatory History of Present Illness ED Provider: Ernestina Aparicio PA-C [facility] narrative: 39-year-old male with no significant past medical history presenting to the ED complaining of substernal chest pain radiating to left shoulder since 04:45AM, waking him up from sleep with associated nausea & vomiting. Reports pain is still present, slightly improved. Denies SOB, fever, chills, cough, pedal edema, travel, sick contacts. Admits to similar symptoms in the past, told it was GERD/gastritis. Related Data Previous Rx's ?Medication ?Instructions ?Recorded hydrocortisone 2.5 % topical 1 appl topical QD-TID PRN skin 06/08/23 ointment irritation #454 grams hydroxyzine HCl 50 mg tablet 50 mg PO Q8H PRN anxiety #10 tabs 06/08/23 ondansetron 4 mg disintegrating 4 mg PO Q8H nausea and vomiting 06/08/23 tablet #10 tabs prednisone 20 mg tablet 40 mg (2 x 20 mg) PO DAILY 06/08/23 inflammation 5 days #10 tabs Allergies Allergy/AdvReac Type Severity Reaction Status Date / Time Penicillins [PENICILLINS] Allergy Severe HIVES Verified 07/15/24 08:38 penicillin V Allergy Unknown hives Verified 07/15/24 08:38 Review of Systems 2 Review of Systems: Yes all other systems are reviewed and are negative Constitutional: Constitutional: Reports as per [facility] Past Medical History Attestation statement: The following information was validated with the patient. Source: old records reviewed Social History Social History Substance Use Type: Marijuana Advance Directives: No Advance Directives Information Provided: Yes Do you have a plan to hurt others: No Plan Physical Exam 2 Vital Signs: Vital Signs: Last Vital Signs Temp 97 F 07/15/24 12:00 Pulse 60 07/15/24 12:00 Resp 16 07/15/24 12:00 BP 128/65 07/15/24 12:00 Pulse Ox 98 07/15/24 12:00 O2 Del Method Room Air 07/15/24 12:00 BMI result Body Mass Index 48.0 Const: General: cooperative, healthy appearing and no acute distress O rientation/consciousness: patient oriented x3 Limitations: no limitations HEENT: Head: Yes normal to inspection and Yes atraumatic Ears: hearing grossly normal bilaterally General nose exam: Normal external nose present Face and sinus: Yes normal facial exam Eyes: General: appearance normal, both eyes and all related structures EOM: EOMs intact bilaterally Neck: Neck: Yes normal visual inspection and Yes no meningeal signs Resp: Effort & Inspection: normal respiratory effort and no respiratory distress Auscultation: clear to auscultation bilaterally, no crackles and no wheezes Cardio: Rate: regular rate Heart sounds: S1 normal heart sound present and S2 normal heart sound present GI: Inspection: Yes normal to inspection Palpation (GI): Soft to palpation, nontender, no guarding and not rigid : General: Yes no CVA tenderness Back/Spine/Pelvis: Back: no CVA tenderness Skin: Rashes: no rashes Wounds: no wounds Neuro: General: patient oriented x3, tone normal and no meningeal signs C ranial nerves: Yes CN's II-XII intact bilaterally Gait exam (Neuro): Normal gait present Extrem: General: Yes normal to inspection Course Course Course Narrative: 1000--no leukocytosis. AST/ALT chronically elevated. Initial troponin negative > will obtain 3 hour repeat XR chest 1V IMPRESSION: No acute airspace disease. -1207--repeat troponin without rise, mi unlikely. Patient reports symptomatic improvement. Tolerating p.o. in the ED. Recommended close cardiology and GI follow-up Results discussed with patient including worrisome signs and symptoms and strict return precautions, and when to return to the emergency department. They verbalized understanding and feel safe for discharge at this time. Medications Administered Discontinued Medications Generic Name Dose Route Start Last Admin Trade Name Freq PRN Reason Stop Dose Admin Al Hydroxide/Mg Hydroxide 30 ml 07/15/24 09:00 07/15/24 09:15 Magnesium Hydrox/Alum Hydrox 30 Ml Oral.Susp PO 07/15/24 09:01 30 ml ONCE ONE Administration Famotidine 20 mg 07/15/24 09:00 07/15/24 09:15 Famotidine 20 Mg Tablet PO 07/15/24 09:01 20 mg ONCE ONE Administration Ondansetron HCl 4 mg 07/15/24 09:00 07/15/24 09:15 Ondansetron Odt 4 Mg Tab.Denise COLMENARES 07/15/24 09:01 4 mg ONCE ONE Administration Medical Decision Making Medical Decision Making MDM Narrative: 39-year-old male with no significant past medical history presenting to the ED complaining of substernal chest pain radiating to left shoulder since 04:45AM, waking him up from sleep with associated nausea & vomiting. On exam vital signs stable, NAD, nontoxic appearing, chest pain not reproducible, abdomen soft/nontender. Lungs CTA. Concern for ACS vs GERD/gastritis vs anxiety. Lower suspicion for acute cholecystitis/lithiasis or pancreatitis. Unlikely PE/dissection Plan: EKG, labs, CXR, GI cocktail, re-evaluate Please refer to course for remaining clinical decision making, interpretation of labs/imaging results, and discussions with consultants and/or family members. Differential Diagnosis Differential Diagnoses: The differential diagnosis associated with the presentation includes As above Admission/Observation Consideration of admission/observation: Escalation of care including admission/observation considered Lab Data MDM Lab Attestation statement: I reviewed the patient's lab results. 07/15/24 08:54 07/15/24 08:54 Labs: Lab Results 07/15/24 07/15/24 Range/Units 08:54 10:40 WBC 8.0 (4.8-10.8) X10*3/uL RBC 5.07 (4.60-5.80) X10*6/uL Hgb 15.6 (14.0-18.0) g/dl Hct 44.2 (42.0-52.0) % MCV 87.2 (80.0-98.0) fL MCH 30.8 (27.0-33.0) pg MCHC 35.3 (31.0-36.0) g/dl RDW 12.9 (11.0-16.0) % Plt Count 190 (160-400) X10*3/uL MPV 10.0 (9.4-12.4) fL Immature Gran % (Auto) 0.5 H (0.0-0.4) % Neut % (Auto) 67.8 (45-73) % Lymph % (Auto) 20.3 (20-40) % [place] % (Auto) 7.7 (2-11) % Eos % (Auto) 3.0 (0-4) % Baso % (Auto) 0.7 (0-2) % Lymph # (Auto) 1.6 (1.2-4.9) X10*3/uL [place] # (Auto) 0.6 (0.1-1.2) X10*3/uL Eos # (Auto) 0.2 (0.0-0.4) X10*3/uL Baso # (Auto) 0.1 (0.0-0.2) X10*3/uL Abs Immat Gran (auto) 0.04 H (0.00-0.03) X10*3/uL Absolute Neuts (auto) 5.4 (2.0-8.3) x10*3/uL Absolute Nucleated RBC 0.000 (0.0-0.012) X10*3/uL Nucleated RBC % (auto) 0.0 (0.0-0.2) /100WBC PT 11.9 (10.9-12.4) SEC INR 1.0 (0.9-1.1) Sodium 137 (135-145) mmol/L Potassium 4.4 D (3.3-5.1) mmol/L Chloride 106 (96-108) mmol/L Carbon Dioxide 23 (22-29) mmol/L Anion Gap 12 (12-20) BUN 8 L (9-16) mg/dL Creatinine 0.78 (0.5-1.4) mg/dL Estim Creat Clear Calc 218.6 Estimated GFR > 60 Random Glucose 106 (60-115) mg/dL Calcium 11.1 H D (8.4-10.2) mg/dL Magnesium 2.1 (1.6-2.6) mg/dL Total Bilirubin 0.7 (0.0-1.0) mg/dL AST 47 H (5-37) U/L ALT 95 H (0-40) U/L Alkaline Phosphatase 75 (39-117) U/L Troponin I High Sens < 2.7 < 2.7 (<3.5-35.0) ng/L Total Protein 8.4 H (6.5-8.0) g/dL Albumin 4.6 (3.5-5.0) g/dL Lipase 17 (8-78) U/L Independent Interpretation I performed an independent interpretation of an: EKG (My interpretation: EKG normal sinus rhythm rate of 67. QTC 399. No significant change when compared to prior. No STEMI) and Plain X-Ray Radiology Impression Discussion of test interpretation with radiology: I have reviewed the radiologist's reading. External Record Review External record reviewed: Inpatient record, Office record, Outpatient record, Prior outpatient labs, Prior outpatient radiology, Primary care record and Outside ED record Tests considered The following testing was considered but not selected: As above Prescription Management I considered prescription management with: Other Chronic Conditions Patient?s care impacted by: Other Social Determinants Patient?s care significantly limited by Social Determinants of Health including: Other Social Determinant of Health Discharge Plan Discharge Clinical Impression: Chest pain Patient Disposition: Home, Self-Care Prescriptions: No Action hydroxyzine HCl 50 mg tablet 50 mg PO Q8H PRN (Reason: anxiety) Qty: 10 0RF ondansetron 4 mg tablet,disintegrating 4 mg PO Q8H Qty: 10 0RF hydrocortisone 2.5 % ointment 1 appl topical QD-TID PRN (Reason: skin irritation) Qty: 454 0RF prednisone 20 mg tablet 40 mg PO DAILY 5 Days Qty: 10 0RF Referrals: [facility] [place] [facility] [Provider Group] - 1 week Ren Prado MD [Primary Care Provider] - 5 days Print Language: Malay
--- OUTSIDE RECORDS SUMMARY | 2024-07-15 09:29 | XMS_ITS | Clinical Summary ---
Author Organization [facility] Address [address] [place] [address] Phone Care Team Providers Care Grocery Sacker Name Role Phone Ren Prado MD Primary Care Provider Allergies Active Allergy Reactions Criticality Noted Date Comments Penicillins Hives 09/24/2005 Medications omeprazole (PriLOSEC) [address] capsule Take 1 capsule (20 mg total) by mouth 2 (two) times a day. 07/12/2023 Active sertraline (ZOLOFT) 25 mg tablet Take 1 tablet (25 mg total) by mouth 1 (one) time each day. 10/22/2023 Active Active Problems Problem Noted Date Diagnosed Date Morbid obesity with BMI of 45.0-49.9, adult 04/20 Hepatomegaly 08/31/2022 Fatty liver 08/31/2022 Venous insufficiency of both lower extremities 1 Elevated BP without diagnosis of hypertension Encounters Date Type Department Care Team Description 06/20/2024 2:04 PM EST - 06/20/2024 5:01 PM [facility] Emergency [address] [place] [id number] Right anterior knee pain (Primary Dx) Discharge Disposition: Home or Self Care 05/07/2024 12:21 AM EST - 05/07/2024 5:37 AM [facility] Emergency [address] [place] [id number] Discharge Disposition: Home or Self Care from Last 3 Months Immunizations Name Administration Dates Next Due Tdap Tetanus diptheria acell ular pertussis (Boostrix; Adacel) 7yo and older 05/19/2022 Surgical History Surgery Date Site/Laterality Comments ANKLE SURGERY PROCEDURE: HISTORICAL ANKLE SURGERY Medical History Medical History Date Comments Anxiety Family History Medical History Relation Name Comments Diabetes Father Heart attack Maternal Grandfather Diabetes Mother Relation Name Status Comments Father Maternal Grandfather Mother Social History Tobacco Use Types Packs/Day Years Used Date Smoking Tobacco: Every Day Cigarettes Smokeless Tobacco: Former Alcohol Use Standard Drinks/Week Comments Yes 3 (1 standard drink = 0.6 oz pur e alcohol) Sex and Gender Information Value Date Recorded Sex Assigned at Not on file Legal Sex Male 9:46 AM EST Gender Identity Not on file Sexual Orientation Not on file Obstetrics History Last Filed Vital Signs Vital Sign Reading Time Taken Comments Blood Pressure 117/63 06/20/2024 12:37 PM EST Pulse 98 06/20/2024 12:37 PM EST Temperature 36.7 ??C (98.1 ??F) 06/20/2024 1:47 PM ES T Respiratory Rate 19 05/07/2024 4:01 AM EST Oxygen Saturation 97% 06/20/2024 12:37 PM EST Inhaled Oxygen Concentration - - Weight 168 kg (371 lb) 06/20/2024 11:29 AM EST Height 188 cm (6' 2 ) 06/20/2024 11:29 AM EST Body Mass Index 47.63 06/20/2024 11:29 AM EST Plan of Treatment Health Maintenance Due Date Last Done Comments Hepatitis B Vaccines (1 of 3 - 19+ 3-dose series) 2005 Pneumococcal Vaccine: Pediat rics (0 to 5 Years) and At-Risk Patients (6 to 64 Years) (1 of 2 - PCV) 2005 HIV Screening 04/18/2022 Social Influencers of Health Screening 04/18/2022 COVID-19 Vaccine (1 - 2023-2 5 season) 2024 Influenza Vaccine (#1) 2024 Depression Screening 10/21/2024 10/22/2023 Cholesterol Screening (Lipid Panel) 05/26/2027 05/26/2022 DTaP,Tdap,and Td Vaccines (2 - Td or Tdap) 05/19/2032 05/19/2022 Hepatitis C Screening Completed 08/15/2022 HIB Vaccines Aged Out No longer eligi ble based on patient's age to complete this topic HPV Vaccines Aged Out No longer eligi ble based on patient's age to complete this topic Hepatitis A Vaccines Aged Out No long er eligible based on patient's age to complete this topic IPV Vaccines Aged Out No longer eligi ble based on patient's age to complete this topic MMR Vaccines Aged Out No longer eligi ble based on patient's age to complete this topic Meningococcal ACWY Vaccine Aged Out N o longer eligible based on patient's age to complete this topic Meningococcal B Vacine Aged Out No lo nger eligible based on patient's age to complete this topic RSV Immunization Patients Un denilson 20 months Aged Out No longer eligible b ased on patient's age to complete this topic Varicella Vaccines Aged Out No longer eligible based on patient's age to complete this topic Procedures Procedure Name Priority Date/Time Associated Diagnosis Comments XR KNEE 4+ VIEWS RIGHT STAT 06/20/2024 2:20 PM EST ECG 12-LEAD STAT 05/07/2024 12:49 AM EST ECG ANNOTATED 05/07/2024 DEPRESSION SCREENING Routine 10/22/2023 HEPATITIS C SCREENING Routine 08/15/2022 LIPID PANEL Routine 05/26/2022 from Last 3 Months or Most Recently Relevant to Health Maintenance Results * XR Knee 4+ Views Right (06/20/2024 2:20 PM EST) Anatomical Region Laterality Modality Lower Extremities, Knee Right Radiogra arh [facility] Imaging 06/20/2024 2:33 PM EST Impressions 06/20/2024 2:34 PM EST FINDINGS/IMPRESSION: Views of the right knee demonstrate no evidence for an acute fracture. ??Anatomic alignment. ??Mild joint space narrowing of the medial compartment. ??No significant joint effusion. -------- FINAL REPORT -------- Dictated By: Bird Bear Dictated Date: 06/20/2024 14:33 ET Assigned Physician: Bird Bear Reviewed and Electronically Signed By: Bird Bear Signed Date: 06/20/2024 14:34 ET Workstation ID: [id number] Transcribed By: Self Edit Transcribed Date: 06/20/2024 14:33 ET Narrative 06/20/2024 2:34 PM EST XR KNEE 4+ VIEWS RIGHT INDICATION: pain TECHNIQUE: XR KNEE 4+ VIEWS RIGHT COMPARISON: No priors available. Procedure Note Bird eBar MD - 06/20/2024 XR KNEE 4+ VIEWS RIGHT INDICATION: pain TECHNIQUE: XR KNEE 4+ VIEWS RIGHT COMPARISON: No priors available. IMPRESSION: FINDINGS/IMPRESSION: Views of the right knee demonstrate no evidence kayden acute fracture. Anatomic alignment. Mild joint space narrowing of themedial compartment. No significant joint effusion. -------- FINAL REPORT -------- Dictated By: Bird Bear Dictated Date: 06/20/2024 14:33 ET Assigned Physician: Bidr Bear Reviewed and Electronically Signed By: Bird Bear Signed Date: 06/20/2024 14:34 ET Workstation ID: [id number] Transcribed By: Self Edit Transcribed Date: 06/20/2024 14:33 ET us Bev GARCIA IMG XR PROCEDURES Final Result * ECG 12 lead (05/07/2024 12:49 AM EST) Ventricular Rate ECG 73 BPM GEMUSE Atrial Rate 73 BPM GEMUSE P-R Interval 160 ms GEMUSE QRS Duration 100 ms GEMUSE Q-T Interval 394 ms GEMUSE QTc 434 ms GEMUSE P Wave [place] 12 degrees GEMUSE R [place] 12 degrees GEMUSE T [place] 24 degrees GEMUSE ECG Interpretation Normal sinus rhythm When compared with ECG of 13-JUL-2023 18:21, No significant change was found Confirmed by NEW FULLER ([id number]) on 05/08/2024 4:32:18 AM GEMUSE 05/07/2024 12:4 9 AM EST 05/08/2024 4:32 AM EST us Bernabe Ferguson MD ECG ORDERABLES Final Result GEMUSE * ECG-Annotated (05/07/2024) Provider Onbase ECG ORDERABLES Final Result * Depression Screening (10/22/2023) Pathologist [facility] Depression Screening Abstracted Historical Provider HEALTH MAINTENANCE Final Result * Hepatitis C Screening (08/15/2022) Pathologist [facility] Hepatitis C Screening Abstracted [facility] Provider HEALTH MAINTENANCE Final Result * Lipid panel (05/26/2022) [facility] LDL/HDL Ratio 3 0 - 4 Triglycerides 115 0 - 150 mg/dL Cholesterol 133 0 - 200 mg/dL HDL 45 >=40 mg/dL LDL Cholesterol 65 0 - 100 mg/dL Blood Venous blood specimen / Unknown [facility] Provider LAB BLOOD ORDERABLES Kristi l Result from Last 3 Months or Most Recently Relevant to Health Maintenance Care Teams Grocery Sacker Relationship Specialty Start Date End Date Ren Prado MD [address] [place] [address] PCP - General 03/07/22
--- OUTSIDE RECORDS SUMMARY | 2024-07-15 09:29 | XMS_ITS | Encounter Summary ---
Author Organization [facility] Address [address] [place] [address] Care Team Providers Care Firefighter Type One Name Role Phone Ren Prado MD Primary Care Provider Reason for Referral * Consultation (Routine) - Closed Specialty Diagnoses / Procedures Referred By Darian t Referred To Contact Orthopaedics / Orthopaedic Surgery Diagnoses atraumatic R knee pain, medial compartment narrowing Bev Alvarez PA [address] [place] [address] Phone: tel: fax: Orthopedic Surgery [facility] [address] [address] Phone: tel: fax: Referral ID Status Reason Start Date Expiration Date V isits Requested Visits Authorized [id number] Closed Specialty Services Required 06/20/2024 06/20/2025 1 1 Reason for Visit * Reason Comments Knee Pain Right knee swelling and pain x a few days, denies injury Encounter Details Date Type Department Care Team (Late st Contact Info) Description 06/20/2024 2:04 PM EST - 06/20/2024 5:01 PM EST Emergency [facility] Emergency [address] [place] [address] Right anterior knee pain (Primary Dx) Discharge Disposition: Home or Self Care Social History Tobacco Use Types Packs/Day Years Used Date Smoking Tobacco: Every Day Cigarettes Smokeless Tobacco: Former Alcohol Use Standard Drinks/Week Comments Yes 3 (1 standard drink = 0.6 oz pur e alcohol) Sex and Gender Information Value Date Recorded Sex Assigned at Not on file Legal Sex Male 9:46 AM EST Gender Identity Not on file Sexual Orientation Not on file documented as of this encounter Last Filed Vital Signs Vital Sign Reading Time Taken Comments Blood Pressure 117/63 06/20/2024 12:37 PM EST Pulse 98 06/20/2024 12:37 PM EST Temperature 36.7 ??C (98.1 ??F) 06/20/2024 1:47 PM ES T Respiratory Rate - - Oxygen Saturation 97% 06/20/2024 12:37 PM EST Inhaled Oxygen Concentration - - Weight 168 kg (371 lb) 06/20/2024 11:29 AM EST Height 188 cm (6' 2 ) 06/20/2024 11:29 AM EST Body Mass Index 47.63 06/20/2024 11:29 AM EST documented in this encounter Discharge Instructions * Discharge Instructions* RADHA Iverson - 06/20/2024 4:52 PM EST You were evaluated emergency department today with right knee pain/swelling. Your x-ray showed no concerning findings. Take tylenol and ibuprofen. Stack these on top of each other as discussed (ie: Ibuprofen at 9 AM, Tylenol at noon, ibuprofen at 3 PM, Tylenol at 6 PM, etc) -Take 600 mg of ibuprofen every 6 hours (do not exceed 2400 mg in 24 hrs) -Take 1000 mg of Tylenol every 6 hours (do not exceed 4000 mg in 24 hrs) Wear Nick wrap this will help with support and compression to help with swelling. Elevate the injured area above your heart as frequently as possible to decrease swelling. Apply ice to the sore area for 15-20 minutes at a time, leave ice off the area for 30-40 minutes between application. Please followup with your primary care provider regarding this visit. Follow-up with orthopedics if your symptoms persist. If you develop significant worsening of your pain, or redness, warmth, worsening swelling, inability to bend or stand and EMS return to the emergency department for further evaluation. Thank you for coming to the [facility] Emergency Department today. Our entire team works together to provide you with the best care possible. Examination and treatment you received in the emergency department has been rendered on an EMERGENCY basis only. It is not intended to be a substitute for or an effort to provide complete medical care. You should follow-up with your primary care provider. Please report to your physician any new or remaining problems, because it is impossible to recognize and treat all elements of injury or illness in a single emergency department visit. If you do not have a primary care provider or require a referral, you may contact facilities listedbelow. In the event that you're unable to obtain a followup appointment in a timely fashion, OR youare not getting any better, OR you are getting worse, OR you develop any symptoms of concern, please return here immediately for further evaluation. The emergency department is open 24 hours a day, 7days a week. Your discharge report is based on information that was available when you were in the emergency department. If you do not have a primary care provider, please contact one of the following to make arrangements to follow up. [facility] [place] [facility] [place] [facility] documented in this encounter Medications at Time of Discharge omeprazole (PriLOSEC) [address] capsule Take 1 capsule (20 mg total) by mouth 2 (two) times a day. 07/12/2023 sertraline (ZOLOFT) 25 mg tablet Take 1 tablet (25 mg total) by mouth 1 (one) time each day. 10/22/2023 documented as of this encounter Discharge Disposition Disposition Code Departure Means Destination Comment s Home or Self Intermediate documented in this encounter Progress Notes * Willian Chi RN - 06/20/2024 4:05 PM EST Pt ambulatory, steady gait with limp to bathroom and back to assigned room * Supriya Wheeler RN - 06/20/2024 11:29 AM EST Pt reports right knee pain and swelling x a few days, denies injury/trauma. * RADHA Iverson - 06/20/2024 11:27 AM EST Emergency Medicine Note Patient Name: Eddie Bender Initial Evaluation: 06/20/2024 : 1985 Patient's PCP: Ren Prado MD Emergency Physician: RADHA Iverson History of Present Illness Chief Complaint: Chief Complaint Patient presents with Knee Pain Right knee swelling and pain x a few days, denies injury HPI: This is a 38-year-old male who is presenting today with complaint of right knee pain. Patient reports for the past 2 to 3 days he has had pain in his right knee. Pain began as feeling stiff , is worse with range of motion and weightbearing. He denies any known injury or trauma however he does walka lot at his job as well as kneeling. He denies fevers, nausea vomiting diarrhea. He is able to ambulate with discomfort. ROS: I have performed a ROS with the pertinent positives and negatives documented in the history ofpresent illness. Previous History Past Medical History: Diagnosis Date Anxiety Past Surgical History: Procedure Laterality Date ANKLE SURGERY PROCEDURE: HISTORICAL ANKLE SURGERY Social History Tobacco Use Smoking status: Every Day Current packs/day: 1.00 Types: Cigarettes Smokeless tobacco: Former Substance Use Topics Alcohol use: Yes Alcohol/week: 3.0 standard drinks of alcohol Drug use: Never Family History Problem Relation Name Age of Onset Diabetes Mother Diabetes Father Heart attack Maternal Grandfather is allergic to penicillins. No current facility-administered medications on file prior to encounter. Current Outpatient Medications on File Prior to Encounter Medication Sig Dispense Refill omeprazole (PriLOSEC) [address] capsule Take 1 capsule (20 mg total) by mouth 2 (two) times a day. sertraline (ZOLOFT) 25 mg tablet Take 1 tablet (25 mg total) by mouth 1 (one) time each day. Physical Exam ED Triage Vitals Temp Heart Rate Resp BP 06/20/24 1347 06/20/24 1237 -- 06/20/24 1237 36.7 ??C (98.1 ??F) 98 117/63 SpO2 Temp Source Heart Rate Source Patient Position 06/20/24 1237 06/20/24 1347 -- -- 97 % Oral BP Location FiO2 (%) -- -- Constitutional: Patient alert and oriented, in no acute distress, non-toxic appearing Respiratory: No increased work of breathing or accessory muscle use. Musculoskeletal: There is pain to palpation of the right knee anterior joint line. There is no painwith manipulation of patella, no posterior pain, active range of motion is limited due to pain, passive range of motion intact. There is no edema, erythema, effusion or fluctuance. There is some slight warmth to the tib-fib region below the knee but no warmth of the joint, patient does have psoriasis on his calf which has been ongoing for quite some time. There is no unilateral calf pain or edema. 2+ pedal pulse. Neurological: Alert and oriented x3, acting appropriately Psych: Normal mood and affect Results Labs Reviewed - No data to display Abnormal Labs Reviewed - No data to display XR Knee 4+ Views Right Final Result FINDINGS/IMPRESSION: Views of the right knee demonstrate no evidence for an acute fracture. Anatomic alignment. Mild joint space narrowing of the medial compartment. No significant joint effusion. -------- FINAL REPORT -------- Dictated By: Bird Bear Dictated Date: 06/20/2024 14:33 ET Assigned Physician: Bird Bear Reviewed and Electronically Signed By: Bird Bear Signed Date: 06/20/2024 14:34 ET Workstation ID: [id number] Transcribed By: Self Edit Transcribed Date: 06/20/2024 14:33 ET Medical Decision Making 38-year-old male presenting with atraumatic right knee pain. On exam patient alert and oriented no acute distress he is hemodynamically stable and afebrile. There is pain to palpation of the right knee anterior joint line. There is no pain with manipulation of patella, no posterior pain, active range of motion is limited due to pain, passive range of motion intact. There is no edema, erythema, effusion or fluctuance. There is some slight warmth to the tib-fib region below the knee but no warmthof the joint, patient does have psoriasis on his calf which has been ongoing for quite some time. There is no unilateral calf pain or edema. 2+ pedal pulse. Imaging showing no evidence of acute fracture, mild joint space narrowing of the medial compartment no significant joint effusion. Overall exam and imaging is reassuring. Very low suspicion for septic joint at this time as patient is able to perform range of motion and ambulate, there is no overlying warmth redness or effusion of the knee. Recommend Nick wrap, Tylenol and ibuprofen, ice and elevation and following up with orthopedics. Return precautions were discussed and acknowledged. Medications - No data to display ED Course as of 06/20/24 1656 SunJun 20, 2024 1602 XR Knee 4+ Views Right Views of the right knee demonstrate no evidence for an acute fracture. Anatomic alignment. Mild joint space narrowing of the medial compartment. No significant joint effusion. [BT] ED Course User Index [BT] RADHA Iverson Clinical Impressions as of 06/20/24 1656 Right anterior knee pain Procedures Procedures Diagnosis 1. Right anterior knee pain Disposition Discharge ED Prescriptions None Physician Attestation RADHA Iverson 06/20/24 1656 RADHA Iverson 06/20/24 1725 Cosigned by Iain Minaya DO at 06/20/2024 5:48 PM EST documented in this encounter Plan of Treatment Scheduled Referrals Name Type Priority Associated Diagnoses Order Schedule Ambulatory referral to Orthopedic Surgery Outpatient Referral Routine 1 Occurrence s starting 06/20/2024 until 06/20/2025 documented as of this encounter Procedures Procedure Name Priority Date/Time Associated Diagnosis Comments XR KNEE 4+ VIEWS RIGHT STAT 06/20/2024 2:20 PM EST documented in this encounter Results * XR Knee 4+ Views Right (06/20/2024 2:20 PM EST) Anatomical Region Laterality Modality Lower Extremities, Knee Right [facility] Imaging 06/20/2024 2:33 PM EST Impressions [...] Signed Date: 06/20/2024 14:34 ET Workstation ID: [id number] Transcribed By: Self Edit Transcribed Date: 06/20/2024 14:33 ET Narrative 06/20/2024 2:34 PM EST XR KNEE 4+ VIEWS RIGHT INDICATION: pain TECHNIQUE: XR KNEE 4+ VIEWS RIGHT COMPARISON: No priors available. Procedure Note Bird Bear MD - 06/20/2024 XR KNEE 4+ VIEWS [...] Signed Date: 06/20/2024 14:34 ET Workstation ID: [id number] Transcribed By: Self Edit Transcribed Date: 06/20/2024 14:33 ET us Bev GARCIA IMG XR PROCEDURES Final Result documented in this encounter Visit Diagnoses Diagnosis Right anterior knee pain- Primary documented in this encounter Care Teams Firefighter Type One Relationship Specialty Start Date End Date Ren Prado MD [address] [place] [address] PCP - General 03/07/22 documented as of this encounter
[2024-07-15 09:36] LABS: Troponin-I High Sensitivity < 2.7 ng/L (<3.5-35.0)
[2024-07-15 10:44] VITALS: BP 134/71; PULSE 51; RESP 14; TEMP 37.2; O2SAT 98
[2024-07-15 11:16] LABS: Troponin-I High Sensitivity < 2.7 ng/L (<3.5-35.0)
[2024-07-15 12:00] VITALS: BP 128/65; PULSE 60; RESP 16; TEMP 36.1; O2SAT 98
[2024-07-15 12:26] VITALS: BP 128/65; PULSE 60; RESP 16; TEMP 36.7; O2SAT 98
== END 2024-07-15 12:27 | disposition home or self-care (01) ==
PROVIDERS: Physician Assistant; Emergency Provider Emergency Medicine; PCP Internal Medicine
DX: R07.89 Other chest pain (principal); R11.2 Nausea with vomiting, unspecified; M25.512 Pain in left shoulder; Z79.899 Other long term (current) drug therapy
CPT/HCPCS: 36415; 71045; 80053; 83690; 83735; 84484; 85025; 85610; 93005; 99283; 99285

== ENCOUNTER → 2024-07-15 08:09 | Outpatient (BNV) | payer SELFPAY | PROVIDERS: Emergency Provider Emergency Medicine; PCP Internal Medicine; Visit Provider Internal Medicine | DX: R07.9 Chest pain, unspecified (principal) | CPT/HCPCS: 93010 ==

== ENCOUNTER → 2024-07-15 08:39 | Outpatient (BNV) | payer SELFPAY | PROVIDERS: Emergency Provider Emergency Medicine; PCP Internal Medicine; Visit Provider Radiology Diagnostic Radiology | DX: R07.9 Chest pain, unspecified (principal) | CPT/HCPCS: 71045 ==